=== PATIENT | male | born 1985 ===

== ENCOUNTER 2017-06-14 09:39 | Emergency (ER) | payer SELFPAY ==
[2017-06-14 10:04] VITALS: BP 140/75; PULSE 98; O2SAT 100; BMI 24.0
[2017-06-14 10:20] VITALS: RESP 16; TEMP 97
--- NOTE | 2017-06-14 10:37 | ED PDOC ---
HPI: Eye Injury/Pain Time Seen by Provider: 06/14/17 10:21 Chief Complaint (Nursing): Eye Problem Chief Complaint (Provider): Selling, mild left upper eyelid History Per: Patient History/Exam Limitations: no limitations Onset/Duration Of Symptoms: Hrs Current Symptoms Are (Timing): Still Present Severity: Mild Associated Symptoms: Swelling Additional Complaint(s): Pt states he woke up with welling of the left upper eyelid and yellow drainage. No fever/chills. No change in vision. No pain or FB sensation. Past Medical History Reviewed: Historical Data, Nursing Documentation, Vital Signs Vital Signs: Last Vital Signs Temp 97.0 F L 06/14/17 10:18 Pulse 98 H 06/14/17 10:18 Resp 16 06/14/17 10:18 BP 140/75 06/14/17 10:18 Pulse Ox 100 06/14/17 10:18 - Medical History PMH: No Chronic Diseases - Surgical History Surgical History: No Surg Hx - Family History Family History: States: No Known Family Hx - Living Arrangements Living Arrangements: With Family - Social History Current smoker - smoking cessation education provided: No - Home Medications Home Medications: Ambulatory Orders Medication Instructions Recorded Polymyxin/Trimethoprim Sulfate 1 drop XX Q6H 10 Days 06/14/17 [Polytrim Ophth Soln] - Allergies Allergies/Adverse Reactions: Allergies Allergy/AdvReac Type Severity Reaction Status Date / Time No Known Allergies Allergy Verified 06/14/17 10:20 Review of Systems ROS Statement: Except As Marked, All Systems Reviewed And Found Negative Constitutional: Negative for: Fever, Chills Physical Exam - Reviewed Nursing Documentation Reviewed: Yes Vital Signs Reviewed: Yes - Physical Exam Appears: Positive for: Well, Non-toxic, No Acute Distress Head Exam: Positive for: ATRAUMATIC, NORMAL INSPECTION, NORMOCEPHALIC Skin: Positive for: Normal Color, Warm, DRY Eye Exam: Positive for: EOMI, PERRL, Other (Upper eyelid tenderness ). Negative for: Normal appearance, Conjunctival injection ENT: Positive for: Normal ENT Inspection Neck: Positive for: Normal, Painless ROM Respiratory: Negative for: Accessory Muscle Use, Respiratory Distress Back: Positive for: Normal Inspection Extremity: Positive for: Normal ROM Neurologic/Psych: Positive for: Alert, Oriented - ECG O2 Sat by Pulse Oximetry: 100 Disposition - Clinical Impression Clinical Impression: Sty - Patient ED Disposition Is Patient to be Admitted: No Counseled Patient/Family Regarding: Diagnosis, Need For Followup, Rx Given - Disposition Disposition: Routine/Home Disposition Time: 10:35 Condition: GOOD Additional Instructions: Warm compresses. Prescriptions: Polymyxin/Trimethoprim Sulfate [Polytrim Ophth Soln] 1 drop XX Q6H 10 Days Instructions: aVdim (ED) Print Language: YAKUT
== END 2017-06-14 10:59 | disposition home or self-care (01) ==
LOC: H.ER 09:39
DX: H00.16 Chalazion left eye, unspecified eyelid (principal)